=== PATIENT | female | born 1980 | race Caucasian/White ===

== ENCOUNTER 2017-01-10 00:49 | Emergency (ER) | payer OTHER ==
[~2017-01-10 00:49] MED LIST: HUMALOG100 UNIT/1 SC; LANTUS100 UNIT/1 SC; NOVOLIN R100 UNIT/1 INJ; NOVOLOG 10100 UNITS1 SQ; SYNTHROID200 MCG PO
[2017-01-10 01:44] LABS: HEMOGLOBIN 15.6 gm/dl (12.3-15.3); RED BLOOD COUNT 5.02 M/UL (4.00-5.10); WHITE BLOOD COUNT 10.4 K/UL (4.5-11.0)
[2017-01-10 02:02] LABS: BUN/CREATININE RATIO 13 (0-10)
== END 2017-01-10 05:20 | disposition home or self-care (01) ==
LOC: ER1 00:49
PROVIDERS: Emergency Medicine
DX: E10.10 Type 1 diabetes mellitus with ketoacidosis without coma (principal)
CPT/HCPCS: 36415; 71010; 80053; 81001; 82009; 82800; 82962; 83605; 84484; 84703; 85025; 87040; 93005; 96361; 96365; 96366; 96375; 96376; 99291; J2270; J2405; J7120

== ENCOUNTER → 2021-02-23 | Outpatient (CLI) | payer OTHER ==
[~2021-02-23] MED LIST changes: +BUSPIRONE HCL5 MG PO; +CITRATE OF MAG296 ML PO; +DOXYCYCLINE HY100 MG PO; +FLOMAX 0.4 MG0.4 MG PO; +HYDROCODON-ACE1 EAC4 PO; +MACROBID 100 M100 MG PO; +NAPROSYN500 MG PO; +NORCO 7.5-3251 EACH PO; +NOVOLIN R100 UNIT/1 SC; +ZOFRAN4 MG PO
== END ==
LOC: KOH-I 09:48
DX: M25.572 Pain in left ankle and joints of left foot (principal); M25.571 Pain in right ankle and joints of right foot; M77.30 Calcaneal spur, unspecified foot
CPT/HCPCS: 73610; 73630

== ENCOUNTER 2021-11-30 02:28 | Emergency (ER) | payer OTHER ==
[2021-11-30] MEDS ORDERED: IBUPROFEN600 MG PO (02:51)
[2021-11-30] MEDS ORDERED: NORFLEX 100 MG100 MG PO (02:51)
== END 2021-11-30 04:30 | disposition home or self-care (01) ==
LOC: ER1 02:28
DX: S63.642A Sprain of metacarpophalangeal joint of left thumb, initial encounter (principal); E11.9 Type 2 diabetes mellitus without complications; Z79.4 Long term (current) use of insulin; X50.9XXA Other and unspecified overexertion or strenuous movements or postures, initial encounter; Y92.009 Unspecified place in unspecified non-institutional (private) residence as the place of occurrence of the external cause
CPT/HCPCS: 29125; 73130; 99283

== ENCOUNTER 2022-07-05 08:47 | Emergency (ER) | payer OTHER ==
[~2022-07-05 08:47] MED LIST changes: +IBUPROFEN600 MG PO; +NORFLEX 100 MG100 MG PO
[2022-07-05] MEDS ORDERED: NAPROSYN500 MG PO (11:56)
== END 2022-07-05 12:10 | disposition home or self-care (01) ==
LOC: ER1 08:47
DX: S30.0XXA Contusion of lower back and pelvis, initial encounter (principal); M51.36 Other intervertebral disc degeneration, lumbar region; E10.9 Type 1 diabetes mellitus without complications; W19.XXXA Unspecified fall, initial encounter; Y92.009 Unspecified place in unspecified non-institutional (private) residence as the place of occurrence of the external cause
CPT/HCPCS: 72131; 72220; 96374; 99284; J1885